=== PATIENT | male | born 1965 | race Caucasian/White ===

== ENCOUNTER → 2022-05-06 08:46 | Outpatient (BNVA) | payer OTHER, SELFPAY | PROVIDERS: Visit Provider Physician Assistant Medical | DX: S60.021A Contusion of right index finger without damage to nail, initial encounter (principal); S60.031A Contusion of right middle finger without damage to nail, initial encounter; W49.9XXA Exposure to other inanimate mechanical forces, initial encounter | CPT/HCPCS: 73130; 99204 ==

== ENCOUNTER → 2022-05-11 12:51 | Outpatient (BNVA) | payer OTHER, SELFPAY | PROVIDERS: Visit Provider Physician Assistant Medical | DX: S60.021D Contusion of right index finger without damage to nail, subsequent encounter (principal); S60.031D Contusion of right middle finger without damage to nail, subsequent encounter; V00-Y99 External causes of morbidity | CPT/HCPCS: 99213 ==